=== PATIENT | female | born 1955 | race Caucasian/White ===

== ENCOUNTER → 2016-08-05 | Outpatient (CLI) | payer OTHER ==
--- NOTE | 2016-08-05 13:18 | XR ---
EXAMINATION TYPE: XR lumbosacral spine min 4V DATE OF EXAM: 08/05/2016 1:12 PM CLINICAL HISTORY: Low back pain TECHNIQUE: Frontal, lateral, and oblique images of the lumbar spine are obtained. COMPARISON: MRI lumbar spine December 16, 2012 FINDINGS: There are 5 lumbar type vertebral bodies identified. The lumbar spine shows satisfactory alignment without evidence of acute fracture or dislocation. Vertebral body heights are within normal limits. There is mild to moderate multilevel disc space narrowing most prominent in lower lumbar lev els with vacuum disc phenomenon is present. Mild multilevel anterior spurring is identified. The ob lique images appear within normal limits. Facet arthropathy is noted in lower lumbar levels. Some va scular calyces overlying abdominal aorta is present. IMPRESSION: There are mild to moderate multilevel degenerative changes in the lumbar spine redemonstr ated without significant change from prior MRI noted.
== END | disposition home or self-care (01) ==
LOC: RADXRMAIN 12:48
PROVIDERS: ATTEND Family Medicine
DX: M47.816 Spondylosis without myelopathy or radiculopathy, lumbar region (principal)
CPT/HCPCS: 72110

== ENCOUNTER → 2017-07-08 | Outpatient (CLI) | payer OTHER ==
--- NOTE | 2017-07-09 06:37 | MR ---
EXAMINATION TYPE: MR knee LT wo con DATE OF EXAM: 07/08/2017 COMPARISON: Prior MRI left knee April 24, 2016 HISTORY: Left Knee pain for one year per patient. Medial meniscus: Lateral meniscal tears per order. TECHNIQUE: Multiplanar, multisequence images of the knee is performed without IV contrast. FINDINGS: MEDIAL MENISCUS: Anterior and posterior horns show faint linear signal without intra-articular surfac e extension. No significant change from prior. LATERAL MENISCUS: Posterior horn is intact without tear. There is multidirectional signal anterior ho rn lateral meniscus extends to the superior articular surface sagittal images 7 and 8 redemonstrated felt to reflect full-thickness meniscal tear. CRUCIATE LIGAMENTS: The anterior and posterior cruciate ligaments are intact and unremarkable. COLLATERAL LIGAMENTS: The medial collateral ligament and lateral collateral ligament complex are inta ct and unremarkable. EXTENSOR MECHANISM: Visualized quadriceps and patellar tendons are intact. EFFUSION: There is persistent moderate size suprapatellar joint effusion. POPLITEAL CYST: No popliteal/carlos cyst. TRICOMPARTMENT SPACES: There is mild to moderate tricompartment joint space loss and spurring. CARTILAGE: There is near full-thickness chondromalacia patella involving the inferior lateral aspect of the posterior patellar pole redemonstrated. Articular cartilage medial and lateral tibiofemoral co mpartment is fairly well preserved. BONE MARROW SIGNAL: No focal abnormal marrow signal is appreciated. OTHER: No additional significant abnormality is appreciated. IMPRESSION: 1. Full-thickness tearing anterior horn of lateral meniscus is felt present not significantly changed from prior. 2. No full-thickness tear medial meniscus. Possible intrasubstance tear. No significant change from p rior. 3. Mild to moderate tricompartment degenerative changes with some chondromalacia patella redemonstrat ed. No significant change from prior. 4. Moderate suprapatellar joint effusion stable from prior.
== END | disposition home or self-care (01) ==
LOC: RADMRIMAIN 19:29
PROVIDERS: ATTEND Orthopaedic Surgery
DX: S83.281A Other tear of lateral meniscus, current injury, right knee, initial encounter (principal); M25.461 Effusion, right knee

== ENCOUNTER → 2017-09-10 | Outpatient (CLI) | payer OTHER | LOC: RADMRIMAIN 18:01 | PROVIDERS: ATTEND Family Medicine | DX: Z53.9 Procedure and treatment not carried out, unspecified reason (principal) ==

== ENCOUNTER 2017-12-24 16:30 | Inpatient (IN) | payer MEDICARE, OTHER ==
[2017-12-24] MEDS ORDERED: CLINDAMYCIN 600 MG in DEXTROSE 5% IN WATER 50 ML IVPB STA ×2 (19:04)
[2017-12-24] MEDS ORDERED: LEVOFLOXACIN 750MG-D5W PMX 750 MG in DEXTROSE/WATER 1 150ML.BAG IVPB STA (19:04)
--- NOTE | 2017-12-24 19:14 | ED ---
Animal Bite HPI - General Chief Complaint: Animal Bite Stated Complaint: Cat Bite Time Seen by Provider: 12/24/17 18:34 Source: patient Mode of arrival: ambulatory Limitations: no limitations - History of Present Illness Initial Comments: 62-year-old female patient presents to the emergency department today for evaluation of cat bite to the left arm and hand. Patient states this occurred on Thursday. Did that she's been having swelling and redness to the left arm. States that she did see her primary care physician yesterday and was started on clindamycin added patient went to the office to have it wrapped today and they did note that the redness had increased and spread up her arm so they instructed her to come here for IV antibiotic's. Patient states she has been having chills however denies any known fevers. States she has been taking ibuprofen for pain and discomfort. States that the cat is a stray however she does care for the neighborhood and she has gotten the rabies vaccination for this particular cat. Patient did receive a tetanus vaccine from her primary care physician yesterday. Patient denies any recent rash, shortness breath, chest pain, abdominal pain, nausea, vomiting, diarrhea, constipation, back pain , numbness, tingling, dizziness, weakness, hematuria, dysuria, urinary urgency, urinary frequency, headache, visual changes, or any other complaints. - Related Data Home Medications Medication Instructions Recorded Confirmed Acetaminophen Tab [Tylenol] 1,000 mg PO Q6H PRN 02/10/14 12/24/17 Ibuprofen [Motrin] 800 mg PO TID PRN 02/10/14 12/24/17 Loperamide [Imodium] 4 mg PO DAILY PRN 02/10/14 12/24/17 Omeprazole [PriLOSEC] 20 mg PO AC-BID 02/10/14 12/24/17 Ascorbic Acid [Vitamin C] 1,000 mg PO DAILY 02/20/15 12/24/17 Atorvastatin [Lipitor] 20 mg PO HS 02/20/15 12/24/17 Ergocalciferol [Vitamin D2] 50,000 unit PO FR 02/20/15 12/24/17 LORazepam [Ativan] 1 mg PO QAM 02/20/15 12/24/17 LORazepam [Ativan] 1.5 mg PO HS 02/20/15 12/24/17 Lactase [Lactaid] 9,000 unit PO BID PRN 02/20/15 12/24/17 Magnesium Oxide [Mag-Ox] 250 mg PO DAILY 02/20/15 12/24/17 Simethicone [Gas-X] 250 mg PO DAILY 02/20/15 12/24/17 fluvoxaMINE MALEATE [Luvox] 150 mg PO BID 02/20/15 12/24/17 metFORMIN HCL 1,000 mg PO BID 02/20/15 12/24/17 Aspirin EC [Ecotrin Low Dose] 81 mg PO DAILY 12/24/17 12/24/17 Calcium Polycarbophil [Fibercon] 625 mg PO DAILY 12/24/17 12/24/17 HYDROcodone/APAP 7.5-325MG [[place] 1 tab PO Q6H PRN 12/24/17 12/24/17 7.5-325] buPROPion XL [Wellbutrin Xl] 300 mg PO DAILY 12/24/17 12/24/17 rOPINIRole HCL [Requip] 0.5 mg PO HS 12/24/17 12/24/17 Allergies Allergy/AdvReac Type Severity Reaction Status Date / Time aspirin Allergy Unknown Verified 12/24/17 19:10 cinnamon [Cinnamon] Allergy CHANCRE Verified 12/24/17 19:10 SORES clindamycin HCl Allergy Unknown Verified 12/24/17 19:10 [From Cleocin] clindamycin palmitate HCl Allergy Unknown Verified 12/24/17 19:10 [From Cleocin] clindamycin phosphate Allergy Unknown Verified 12/24/17 19:10 [From Cleocin] codeine Allergy Unknown Verified 12/24/17 19:10 cyclobenzaprine HCl Allergy BALANCE Verified 12/24/17 19:10 [From Flexeril] ISSUES/RELAXTION erythromycin base Allergy Unknown Verified 12/24/17 19:10 [Erythromycin Base] etodolac [From Lodine] Allergy Unknown Verified 12/24/17 19:10 formaldehyde Allergy Rash/Hives Verified 12/24/17 19:10 latex Allergy Rash/Hives Verified 12/24/17 19:10 nickel [Nickel] Allergy Rash/Hives Verified 12/24/17 19:10 Penicillins Allergy Rash/Hives Verified 12/24/17 19:10 Tetracyclines Allergy Rash/Hives Verified 12/24/17 19:10 tramadol HCl [From Ultram] Allergy Unknown Verified 12/24/17 19:10 vancomycin Allergy Rash/Hives Verified 12/24/17 19:10 FRAGANCE Allergy HEADACHE Uncoded 12/24/17 16:54 QUANTERNIUM 15 Allergy Rash/Hives Uncoded 12/24/17 16:54 Review of Systems ROS Statement: Those systems with pertinent positive or pertinent negative responses have been documented in the HPI. ROS Other: All systems not noted in ROS Statement are negative. Past Medical History Past Medical History: Diabetes Mellitus, GERD/Reflux, Hyperlipidemia, Skin Disorder Additional Past Medical History / Comment(s): IBS. LICHENS SCLEROSIS (PERINEAL WOUND) & PITYRIASIS RUBRA PILARIS. mitral valve proplapse when [address] zarate, no longer being treated for that History of Any Multi-Drug Resistant Organisms: None Reported Past Surgical History: Hysterectomy, Tonsillectomy Additional Past Surgical History / Comment(s): RETINAL DETACHMENT. LAPROSCOPY. right cataract, left wrist surgery 02/21/15, adhesions, egd- chocked on food, gets esophagus stretched about 4-5 years ago, 2002 sklarel buckle right eye Past Anesthesia/Blood Transfusion Reactions: Previous Problems w/ Anesthesia Additional Past Anesthesia/Blood Transfusion Reaction / Comment(s): DIFFICULTY WAKING UP Past Psychological History: Anxiety, Depression Smoking Status: Never smoker Past Alcohol Use History: None Reported Past Drug Use History: None Reported - Past Family History Mother Family Medical History: Coronary Artery Disease (CAD), Diabetes Mellitus, Hypertension Father Additional Family Medical History / Comment(s): psychiatric problems General Exam Limitations: no limitations General appearance: alert, in no apparent distress, other (This is a well- developed, well-nourished adult female patient in no acute distress. Vital signs upon presentation are temperature 98.4F, pulse 104, respirations 18, blood pressure 121/67, pulse ox 98% on room air.) Eye exam: Present: normal appearance, PERRL, EOMI. Absent: scleral icterus, conjunctival injection, periorbital swelling ENT exam: Present: normal exam, normal oropharynx, mucous membranes moist Respiratory exam: Present: normal lung sounds bilaterally. Absent: respiratory distress, wheezes, rales, rhonchi, stridor Cardiovascular Exam: Present: regular rate, normal rhythm, normal heart sounds. Absent: systolic murmur, diastolic murmur, rubs, gallop, clicks GI/Abdominal exam: Present: soft, normal bowel sounds. Absent: distended, tenderness, guarding, rebound, rigid Extremities exam: Present: full ROM, tenderness (Over the dorsal left forearm. ) , normal capillary refill, other (Patient has circumferential left forearm erythema. The erythema extends past the elbow up into the medial upper arm. There is erythema over the dorsal surface of the left hand. Mild swelling of the left hand and the left forearm. Patient has multiple abrasions and healing lacerations to the forearm and dorsal hand. Skin is otherwise pink, warm, and dry. Cap refills less than 3 seconds. Radial pulses are 2+ and equal bilaterally.). Absent: normal inspection, pedal edema, joint swelling, calf tenderness Neurological exam: Present: alert, oriented X3, CN II-XII intact Psychiatric exam: Present: normal affect, normal mood Skin exam: Present: warm, dry, intact, normal color. Absent: rash Course Vital Signs 12/24/17 12/24/17 12/24/17 16:52 20:51 22:01 Temperature 98.4 F 98.2 F 98.1 F Pulse Rate 104 H 78 77 Respiratory 18 18 16 Rate Blood Pressure 121/67 120/69 123/75 O2 Sat by Pulse 98 100 99 Oximetry Medical Decision Making - Medical Decision Making 62-year-old female patient presented to the emergency department today for evaluation of cat bites to the left hand and forearm. Physical examination did reveal cellulitis is circumferential to the left forearm, dorsal aspect of the hand, and the medial aspect of the left upper arm. Patient is afebrile. White blood cell count was within normal range. Patient did take 3 doses of oral clindamycin prior to coming in however she did have extension of the cellulitis overnight from the elbow up to the mid upper arm. Patient does have many ALLERGIES to antibiotics we will continue to clindamycin IV and start Levaquin as well. Patient will be admitted for continued intravenous antibiotics. She' ll be admitted to Dr. Sauer. - Lab Data Result diagrams: 12/24/17 19:28 12/24/17 19:28 Lab Results 12/24/17 12/24/17 12/24/17 Range/Units 19:28 19:28 20:08 WBC 7.7 (3.8-10.6) k/uL RBC 3.72 L (3.80-5.40) m/uL Hgb 8.8 L (11.4-16.0) gm/dL Hct 28.3 L (34.0-46.0) % MCV 76.1 L (80.0-100.0) fL MCH 23.7 L (25.0-35.0) pg MCHC 31.1 (31.0-37.0) g/dL RDW 17.5 H (11.5-15.5) % Plt Count 259 (150-450) k/uL Neutrophils % 69 % Lymphocytes % 18 % Monocytes % 8 % Eosinophils % 1 % Basophils % 0 % Neutrophils # 5.4 (1.3-7.7) k/uL Lymphocytes # 1.4 (1.0-4.8) k/uL Monocytes # 0.6 (0-1.0) k/uL Eosinophils # 0.1 (0-0.7) k/uL Basophils # 0.0 (0-0.2) k/uL Hypochromasia Moderate Anisocytosis Slight Microcytosis Slight Sodium 140 (137-145) mmol/L Potassium 4.0 (3.5-5.1) mmol/L Chloride 105 (98-107) mmol/L Carbon Dioxide 24 (22-30) mmol/L Anion Gap 11 mmol/L BUN 14 (7-17) mg/dL Creatinine 0.70 (0.52-1.04) mg/dL Est GFR (CKD-EPI)AfAm >90 (>60 ml/min/1.73 sqM) Est GFR (CKD-EPI)NonAf >90 (>60 ml/min/1.73 sqM) Glucose 81 (74-99) mg/dL Plasma Lactic Acid Iain 1.5 (0.7-2.0) mmol/L Calcium 9.2 (8.4-10.2) mg/dL Total Bilirubin 0.2 (0.2-1.3) mg/dL AST 19 (14-36) U/L ALT 25 (9-52) U/L Alkaline Phosphatase 64 (38-126) U/L Total Protein 5.9 L (6.3-8.2) g/dL Albumin 3.8 (3.5-5.0) g/dL - Radiology Data Radiology results: report reviewed, image reviewed 3 views of the left hand were obtained, no fracture or dislocations were noted. Joint spaces are normal. There is deformity of the distal radius related to old trauma. There is narrowing of the radiocarpal joint space. Impression by Dr. Randolph shows old wrist fracture. No acute abnormality of the left hand. X-ray of the left forearm was obtained. This no fracture nor dislocation. There is deformity of the distal radius and ulna related to old healed fractures. Elbow joint appears intact. There is some soft tissue swelling over the mid radius. Impression by Dr. Randolph shows soft tissue swelling. No acute bony abnormality. Disposition Clinical Impression: Cat bite involving extremity, Cellulitis Disposition: ADMITTED IP TO THIS [facility] Condition: Serious Decision to Admit Reason: Admit from EC Decision Date: 12/24/17 Decision Time: 21:35
[2017-12-24 19:48] LABS: Anisocytosis Slight; Basophils % (A) 0 %; Eosinophils # (A) 0.1 k/uL (0-0.7); Eosinophils % (A) 1 %; HCT 28.3 % (34.0-46.0); HGB 8.8 gm/dL (11.4-16.0); Hypochromasia Moderate; Lymphocytes # (A) 1.4 k/uL (1.0-4.8); Lymphocytes % (A) 18 %; MCH 23.7 pg (25.0-35.0); MCHC 31.1 g/dL (31.0-37.0); MCV 76.1 fL (80.0-100.0); Mean Platelet Volume 7.5; Microcytosis Slight; Monocytes # (A) 0.6 k/uL (0-1.0); Monocytes % (A) 8 %; Neutrophils # (A) 5.4 k/uL (1.3-7.7); Neutrophils % (A) 69 %; Platelet Count 259 k/uL (150-450); RBC 3.72 m/uL (3.80-5.40); RDW 17.5 % (11.5-15.5); WBC 7.7 k/uL (3.8-10.6)
[2017-12-24 20:02] LABS: ALT 25 U/L (9-52); AST 19 U/L (14-36); Albumin 3.8 g/dL (3.5-5.0); Alkaline Phosphatase 64 U/L (38-126); Anion Gap 11 mmol/L; Blood Urea Nitrogen 14 mg/dL (7-17); Calcium 9.2 mg/dL (8.4-10.2); Carbon Dioxide 24 mmol/L (22-30); Chloride 105 mmol/L (98-107); Glucose 81 mg/dL (74-99); Sodium 140 mmol/L (137-145); Total Bilirubin 0.2 mg/dL (0.2-1.3); Total Protein 5.9 g/dL (6.3-8.2)
[2017-12-24] MEDS ORDERED: IBUPROFEN 400 MG TAB PO PRN (21:31)
[2017-12-24] MEDS ORDERED: NALOXONE 0.4 MG/ML 1 ML VIAL IV PRN (21:31)
--- NOTE | 2017-12-24 21:44 | XR ---
EXAMINATION TYPE: XR hand complete LT DATE OF EXAM: 12/24/2017 COMPARISON: NONE HISTORY: Multiple cat bites TECHNIQUE: 3 views FINDINGS: I see no fracture nor dislocation. Joint spaces are normal. There is deformity of the dista l radius related to old trauma. There is narrowing of radiocarpal joint space. IMPRESSION: Old wrist fracture. No acute abnormality of the left hand.
[2017-12-24] MEDS ORDERED: SODIUM CHLORIDE 0.9% 1,000 ML IV SCH (21:45)
--- NOTE | 2017-12-24 21:45 | XR ---
EXAMINATION TYPE: XR forearm LT DATE OF EXAM: 12/24/2017 COMPARISON: NONE HISTORY: Cat bite TECHNIQUE: 2 views FINDINGS: I see no fracture nor dislocation. There is deformity of the distal radius and ulna related to old healed fractures. Elbow joint appears intact. There is some soft tissue swelling over the mid radius. IMPRESSION: Soft tissue swelling. No acute bony abnormality.
[2017-12-24] MEDS ORDERED: LACTASE 9000 UNIT PO PRN (22:09)
[2017-12-24] MEDS ORDERED: LOPERAMIDE 2 MG CAP PO PRN (22:09)
[2017-12-24 23:02] VITALS: BMI 29.0
[2017-12-24] MEDS ORDERED: LORazepam 1 MG TAB PO SCH (23:30)
[2017-12-24] MEDS: HYDROcodone/APAP 7.5-325MG 1 EACH TAB PO PRN (23:45)
[2017-12-24] MEDS: ACETAMINOPHEN TAB 325 MG TAB PO PRN (23:46)
[2017-12-25] MEDS: CLINDAMYCIN 600 MG in DEXTROSE 5% IN WATER 50 ML IVPB SCH ×6 (03:30→18:10)
[2017-12-25] MEDS: metFORMIN 500 MG TAB PO SCH ×2 (06:56→18:10)
[2017-12-25] MEDS: HYDROcodone/APAP 7.5-325MG 1 EACH TAB PO PRN ×2 (06:57→12:38)
[2017-12-25 07:08] LABS: Anisocytosis Slight; Basophils % (A) 1 %; Eosinophils # (A) 0.1 k/uL (0-0.7); Eosinophils % (A) 2 %; HCT 26.4 % (34.0-46.0); Hypochromasia Marked; Lymphocytes % (A) 21 %; MCH 23.4 pg (25.0-35.0); MCHC 30.1 g/dL (31.0-37.0); MCV 77.6 fL (80.0-100.0); Mean Platelet Volume 6.9; Microcytosis Slight; Monocytes # (A) 0.4 k/uL (0-1.0); Monocytes % (A) 9 %; Neutrophils % (A) 64 %; Platelet Count 253 k/uL (150-450); RBC 3.41 m/uL (3.80-5.40); RDW 17.3 % (11.5-15.5); WBC 4.8 k/uL (3.8-10.6)
[2017-12-25 07:20] LABS: Anion Gap 9 mmol/L; Blood Urea Nitrogen 11 mg/dL (7-17); Calcium 8.7 mg/dL (8.4-10.2); Carbon Dioxide 25 mmol/L (22-30); Chloride 106 mmol/L (98-107); Glucose 91 mg/dL (74-99); Sodium 140 mmol/L (137-145)
[2017-12-25] MEDS ORDERED: PANTOPRAZOLE 40 MG TABLET PO SCH (07:30)
--- NOTE | 2017-12-25 08:40 | P.HPIM ---
History of Present Illness H&P Date: 12/25/17 Chief Complaint: Left arm Bite. This is a 62-year-old white female essentially admitted for cellulitis related to animal bite from a cat. The patient states low-grade fever but now after being given Levaquin and clindamycin, she is doing quite well. No significant fever or chills since admission. Her left arm is decreased on swelling but there is still significant cellulitis from the multiple bites. Review of Systems Constitutional: Reports fever, Denies chills Eyes: denies blurred vision, denies pain Ears, nose, mouth and throat: Denies headache, Denies sore throat Cardiovascular: Denies chest pain, Denies shortness of breath Gastrointestinal: Denies abdominal pain, Denies diarrhea, Denies nausea, Denies vomiting Genitourinary: Denies dysuria, Denies hematuria Integumentary: Reports rash, Denies pruritus Past Medical History Past Medical History: Diabetes Mellitus, GERD/Reflux, Hyperlipidemia, Skin Disorder Additional Past Medical History / Comment(s): IBS. LICHENS SCLEROSIS (PERINEAL WOUND) & PITYRIASIS RUBRA PILARIS. mitral valve proplapse when [address] zarate, no longer being treated for that History of Any Multi-Drug Resistant Organisms: None Reported Past Surgical History: Hysterectomy, Tonsillectomy Additional Past Surgical History / Comment(s): RETINAL DETACHMENT. LAPROSCOPY. right cataract, left wrist surgery 02/21/15, adhesions, egd- chocked on food, gets esophagus stretched about 4-5 years ago, 2002 sclarel buckle right eye Past Anesthesia/Blood Transfusion Reactions: Previous Problems w/ Anesthesia Additional Past Anesthesia/Blood Transfusion Reaction / Comment(s): DIFFICULTY WAKING UP Past Psychological History: Anxiety, Depression Smoking Status: Never smoker Past Alcohol Use History: None Reported Past Drug Use History: None Reported - Past Family History Mother Family Medical History: Coronary Artery Disease (CAD), Diabetes Mellitus, Hypertension Father Additional Family Medical History / Comment(s): psychiatric problems Medications and Allergies Home Medications Medication Instructions Recorded Confirmed Type Acetaminophen Tab [Tylenol] 1,000 mg PO Q6H PRN 02/10/14 12/24/17 History Ibuprofen [Motrin] 800 mg PO TID PRN 02/10/14 12/24/17 History Loperamide [Imodium] 4 mg PO DAILY PRN 02/10/14 12/24/17 History Omeprazole [PriLOSEC] 20 mg PO AC-BID 02/10/14 12/24/17 History Ascorbic Acid [Vitamin C] 1,000 mg PO DAILY 02/20/15 12/24/17 History Atorvastatin [Lipitor] 20 mg PO HS 02/20/15 12/24/17 History Ergocalciferol [Vitamin D2] 50,000 unit PO FR 02/20/15 12/24/17 History LORazepam [Ativan] 1 mg PO QAM 02/20/15 12/24/17 History LORazepam [Ativan] 1.5 mg PO HS 02/20/15 12/24/17 History Lactase [Lactaid] 9,000 unit PO BID PRN 02/20/15 12/24/17 History Magnesium Oxide [Mag-Ox] 250 mg PO DAILY 02/20/15 12/24/17 History Simethicone [Gas-X] 250 mg PO DAILY 02/20/15 12/24/17 History fluvoxaMINE MALEATE [Luvox] 150 mg PO BID 02/20/15 12/24/17 History metFORMIN HCL 1,000 mg PO BID 02/20/15 12/24/17 History Aspirin EC [Ecotrin Low Dose] 81 mg PO DAILY 12/24/17 12/24/17 History Calcium Polycarbophil [Fibercon] 625 mg PO DAILY 12/24/17 12/24/17 History HYDROcodone/APAP 7.5-325MG [[place] 1 tab PO Q6H PRN 12/24/17 12/24/17 History 7.5-325] buPROPion XL [Wellbutrin Xl] 300 mg PO DAILY 12/24/17 12/24/17 History rOPINIRole HCL [Requip] 0.5 mg PO HS 12/24/17 12/24/17 History Allergies Allergy/AdvReac Type Severity Reaction Status Date / Time aspirin Allergy Unknown Verified 12/24/17 23:05 cinnamon [Cinnamon] Allergy CHANCRE Verified 12/24/17 23:05 SORES codeine Allergy Unknown Verified 12/24/17 23:05 cyclobenzaprine HCl Allergy BALANCE Verified 12/24/17 23:05 [From Flexeril] ISSUES/RELAXTION erythromycin base Allergy Unknown Verified 12/24/17 23:05 [Erythromycin Base] etodolac [From Lodine] Allergy Unknown Verified 12/24/17 23:05 formaldehyde Allergy Rash/Hives Verified 12/24/17 23:05 latex Allergy Rash/Hives Verified 12/24/17 23:05 nickel [Nickel] Allergy Rash/Hives Verified 12/24/17 23:05 Penicillins Allergy Rash/Hives Verified 12/24/17 23:05 Tetracyclines Allergy Rash/Hives Verified 12/24/17 23:05 tramadol HCl [From Ultram] Allergy Unknown Verified 12/24/17 23:05 vancomycin Allergy Rash/Hives Verified 12/24/17 23:05 FRAGANCE Allergy HEADACHE Uncoded 12/24/17 23:05 QUANTERNIUM 15 Allergy Rash/Hives Uncoded 12/24/17 23:05 Physical Exam Vitals: Vital Signs Temp Pulse Pulse Resp BP BP Pulse Ox 12/24/17 22:32 97.2 F L 74 20 147/79 96 12/24/17 22:01 98.1 F 77 16 123/75 99 12/24/17 20:51 98.2 F 78 18 120/69 100 12/24/17 16:52 98.4 F 104 H 18 121/67 98 Intake and Output 12/24/17 12/25/17 12/25/17 22:59 06:59 14:59 Other: # Voids 1 Weight 86.5 kg - Constitutional General appearance: no acute distress - EENT Eyes: EOMI - Neck Neck: lymphadenopathy - Gastrointestinal General gastrointestinal: no organomegaly, soft, no tenderness - Integumentary Multiple puncture wounds secondary to cat bite on the left forearm. Integumentary: cellulitis - Neurologic Neurologic: CNII-XII intact Results CBC & Chem 7: 12/25/17 06:54 12/25/17 06:54 Labs: Abnormal Lab Results - Last 24 Hours (Table) 12/24/17 12/24/17 12/25/17 Range/Units 19:28 19:28 06:54 RBC 3.72 L 3.41 L (3.80-5.40) m/uL Hgb 8.8 L 8.0 L (11.4-16.0) gm/dL Hct 28.3 L 26.4 L (34.0-46.0) % MCV 76.1 L 77.6 L (80.0-100.0) fL MCH 23.7 L 23.4 L (25.0-35.0) pg MCHC 30.1 L (31.0-37.0) g/dL RDW 17.5 H 17.3 H (11.5-15.5) % Total Protein 5.9 L (6.3-8.2) g/dL Thrombosis Risk Factor Assmnt - Choose All That Apply Each Factor Represents 1 point: Age 41-60 years, Obesity (BMI >25) Thrombosis Risk Factor Assessment Total Risk Factor Score: 2 Thrombosis Risk Factor Assessment Level: Low Risk Assessment and Plan (1) Cat bite involving extremity Current Visit: Yes Status: Acute Code(s): [id number] - SNOMED Code(s): 358297957 (2) Cellulitis Current Visit: Yes Status: Acute Code(s): L03.90 - CELLULITIS, UNSPECIFIED SNOMED Code(s): 270038996 (3) DM w/o complication type II Current Visit: No Status: Acute Code(s): E11.9 - TYPE 2 DIABETES MELLITUS WITHOUT COMPLICATIONS SNOMED Code(s): 723297804 Plan: We will go ahead and continue antibiotic treatment. Anticipate discharge later today after having several more doses of clindamycin and Levaquin. She will follow-up with me in about 3 days. Time with Patient: Less than 30
--- NOTE | 2017-12-25 08:43 | P.DS ---
Providers Date of admission: 12/24/17 21:31 Attending physician: Michael Sauer Primary care physician: Michael Sauer - Discharge Diagnosis(es) (1) Cat bite involving extremity Current Visit: Yes Status: Acute (2) Cellulitis Current Visit: Yes Status: Acute (3) DM w/o complication type II Current Visit: No Status: Acute Hospital Course: This is a discharge summary 62-year-old white female essentially admitted for animal bite. The patient was placed on appropriate antibiotic treatment and did quite well. After being given several doses of Levaquin and clindamycin, she will discharged on oral medication to follow-up with me in about 3-5 days. Patient Condition at Discharge: Stable Plan - Discharge Summary New Discharge Prescriptions: New Clindamycin HCl 300 mg PO Q8HR 7 Days #21 cap Levofloxacin [Levaquin] 500 mg PO DAILY #7 tab Continue Omeprazole [PriLOSEC] 20 mg PO AC-BID Ibuprofen [Motrin] 800 mg PO TID PRN PRN Reason: Pain Acetaminophen Tab [Tylenol] 1,000 mg PO Q6H PRN PRN Reason: Pain Loperamide [Imodium] 4 mg PO DAILY PRN PRN Reason: Diarrhea Simethicone [Gas-X] 250 mg PO DAILY Magnesium Oxide [Mag-Ox] 250 mg PO DAILY Ergocalciferol [Vitamin D2 (DRISDOL)] 50,000 unit PO FR Atorvastatin [Lipitor] 20 mg PO HS Ascorbic Acid [Vitamin C] 1,000 mg PO DAILY LORazepam [Ativan] 1 mg PO QAM LORazepam [Ativan] 1.5 mg PO HS fluvoxaMINE MALEATE [Luvox] 150 mg PO BID metFORMIN HCL 1,000 mg PO BID Lactase [Lactaid] 9,000 unit PO BID PRN PRN Reason: Allergy. Aspirin EC [Ecotrin Low Dose] 81 mg PO DAILY buPROPion XL [Wellbutrin XL] 300 mg PO DAILY Calcium Polycarbophil [Fibercon] 625 mg PO DAILY HYDROcodone/APAP 7.5-325MG [[place] 7.5-325] 1 tab PO Q6H PRN PRN Reason: Pain rOPINIRole HCL [Requip] 0.5 mg PO HS Discharge Medication List Acetaminophen Tab [Tylenol] 1,000 mg PO Q6H PRN 02/10/14 [History] Ibuprofen [Motrin] 800 mg PO TID PRN 08/15/14 [History] Loperamide [Imodium] 4 mg PO DAILY PRN 02/10/14 [History] Omeprazole [PriLOSEC] 20 mg PO AC-BID 02/10/14 [History] Ascorbic Acid [Vitamin C] 1,000 mg PO DAILY 02/20/15 [History] Atorvastatin [Lipitor] 20 mg PO HS 02/20/15 [History] Ergocalciferol [Vitamin D2 (DRISDOL)] 50,000 unit PO FR 02/20/15 [History] LORazepam [Ativan] 1 mg PO QAM 02/20/15 [History] LORazepam [Ativan] 1.5 mg PO HS 02/20/15 [History] Lactase [Lactaid] 9,000 unit PO BID PRN 02/20/15 [History] Magnesium Oxide [Mag-Ox] 250 mg PO DAILY 02/20/15 [History] Simethicone [Gas-X] 250 mg PO DAILY 02/20/15 [History] fluvoxaMINE MALEATE [Luvox] 150 mg PO BID 02/20/15 [History] metFORMIN HCL 1,000 mg PO BID 02/20/15 [History] Aspirin EC [Ecotrin Low Dose] 81 mg PO DAILY 12/24/17 [History] Calcium Polycarbophil [Fibercon] 625 mg PO DAILY 12/24/17 [History] HYDROcodone/APAP 7.5-325MG [[place] 7.5-325] 1 tab PO Q6H PRN 12/24/17 [History] buPROPion XL [Wellbutrin XL] 300 mg PO DAILY 12/24/17 [History] rOPINIRole HCL [Requip] 0.5 mg PO HS 12/24/17 [History] Clindamycin HCl 300 mg PO Q8HR 7 Days #21 cap 12/25/17 [Rx] Levofloxacin [Levaquin] 500 mg PO DAILY #7 tab 12/25/17 [Rx] Follow up Appointment(s)/Referral(s): Michael Sauer MD [Primary Care Provider] - 1-2 days Patient Instructions/Handouts: Animal Bite (ED)
[2017-12-25] MEDS ORDERED: CALCIUM POLYCARBOPHIL 625 MG TAB PO SCH (09:00)
[2017-12-25] MEDS ORDERED: LORazepam 1 MG TAB PO SCH ×2 (09:00→21:00)
[2017-12-25] MEDS ORDERED: ASPIRIN 81 MG PO SCH (09:00)
[2017-12-25] MEDS ORDERED: MAGNESIUM OXIDE 400 MG TAB PO SCH (09:00)
[2017-12-25] MEDS ORDERED: buPROPion XL 300 MG TAB.ER.24H PO SCH (09:00)
[2017-12-25] MEDS ORDERED: SIMETHICONE 80 MG CHEWABLE PO SCH (09:00)
[2017-12-25] MEDS ORDERED: ASCORBIC ACID 500 MG TAB PO SCH (09:00)
[2017-12-25] MEDS ORDERED: ERGOCALCIFEROL 50,000 UNIT CAP PO SCH (09:00)
[2017-12-25] MEDS: ACETAMINOPHEN TAB 325 MG TAB PO PRN (11:08)
[2017-12-25 13:29] VITALS: RESP 20
[2017-12-25 17:25] VITALS: BP 117/76; PULSE 69; TEMP 97.4
[2017-12-25] MEDS ORDERED: LEVOFLOXACIN 500 MG TAB PO SCH (21:00)
[2017-12-25] MEDS ORDERED: LEVOFLOXACIN 500MG-D5W PMX 500 MG in DEXTROSE/WATER 1 100ML.BAG IVPB SCH (21:00)
[2017-12-25] MEDS ORDERED: ATORVASTATIN 20 MG TAB PO SCH (21:00)
== END 2017-12-25 19:11 | disposition home or self-care (01) | DRG 603 ==
LOC: EC 16:30 → 6PED 21:31
PROVIDERS: ADMIT Family Medicine; ATTEND Family Medicine
DX: L03.114 Cellulitis of left upper limb (principal); S51.852A Open bite of left forearm, initial encounter; W55.01XA Bitten by cat, initial encounter; E11.9 Type 2 diabetes mellitus without complications; E78.5 Hyperlipidemia, unspecified; F32.9 Major depressive disorder, single episode, unspecified; F41.9 Anxiety disorder, unspecified; K21.9 Gastro-esophageal reflux disease without esophagitis; K58.9 Irritable bowel syndrome, unspecified; Z82.49 Family history of ischemic heart disease and other diseases of the circulatory system; Z83.3 Family history of diabetes mellitus; Z88.1 Allergy status to other antibiotic agents; Z90.710 Acquired absence of both cervix and uterus; Z98.41 Cataract extraction status, right eye; Z79.899 Other long term (current) drug therapy; Z79.84 Long term (current) use of oral hypoglycemic drugs; Z79.82 Long term (current) use of aspirin; Z79.891 Long term (current) use of opiate analgesic; Z88.6 Allergy status to analgesic agent; Z91.040 Latex allergy status; Z88.5 Allergy status to narcotic agent; Z88.0 Allergy status to penicillin; Z91.048 Other nonmedicinal substance allergy status
CPT/HCPCS: 36415; 80048; 80053; 83605; 85025; 87040; 96365; 96367; 99284

== ENCOUNTER 2018-01-02 17:55 | Emergency (ER) | payer MEDICARE, OTHER ==
[2018-01-02 18:19] VITALS: BP 105/69; PULSE 89; RESP 16; TEMP 97.5
--- NOTE | 2018-01-02 18:47 | XR ---
EXAMINATION TYPE: XR hand complete RT DATE OF EXAM: 01/02/2018 CLINICAL HISTORY: Right hand laceration, redness, and swelling after cat bite TECHNIQUE: Frontal, lateral and oblique images of the right hand are obtained. COMPARISON: None. FINDINGS: There is no acute fracture/dislocation evident in the right hand. The joint spaces in the right hand appear within normal limits. Subcutaneous emphysema is seen between the fourth and fifth m etatarsals with dorsal soft tissue swelling. No cortical erosion. No periosteal reaction. No radiopaq ue foreign body. IMPRESSION: There is no acute fracture or dislocation in the right hand. Subcutaneous emphysema betw een the fourth and fifth metatarsals with associated soft tissue swelling likely in the region of the known penetrating trauma. No periosteal reaction or cortical erosion.
[2018-01-02] MEDS ORDERED: LEVOFLOXACIN 500 MG TAB PO STA (19:01)
--- NOTE | 2018-01-02 19:02 | ED ---
Animal Bite HPI - General Chief Complaint: Animal Bite Stated Complaint: CAT BITE RT ARM Time Seen by Provider: 01/02/18 18:21 Source: patient, RN notes reviewed Mode of arrival: ambulatory Limitations: no limitations - History of Present Illness Initial Comments: This is a 8-year-old female presents to the emergency department with chief complaint of Eye. Patient states that she cares for stray cats her neighborhood. She states that last evening the cat's that her in the right hand. Patient states that she washed the area with hydrogen peroxide and put Silvadene cream on it over the night. Patient states that she was discharged one week ago from the hospital from a cat bite to her left forearm and hand. She states that she was admitted for IV Levaquin and clindamycin. She states that she finished her oral dose of Levaquin yesterday and is still taking clindamycin currently. She denies any fevers or chills. She states that she is up-to-date with her tetanus vaccination. States that she does believe this particular stray cat is up-to-date with vaccinations and states that she has received the rabies vaccine. Patient denies any other injuries or trauma. - Related Data Home Medications Medication Instructions Recorded Confirmed Acetaminophen Tab [Tylenol] 1,000 mg PO Q6H PRN 02/10/14 12/24/17 Ibuprofen [Motrin] 800 mg PO TID PRN 02/10/14 12/24/17 Loperamide [Imodium] 4 mg PO DAILY PRN 02/10/14 12/24/17 Omeprazole [PriLOSEC] 20 mg PO AC-BID 02/10/14 12/24/17 Ascorbic Acid [Vitamin C] 1,000 mg PO DAILY 02/20/15 12/24/17 Atorvastatin [Lipitor] 20 mg PO HS 02/20/15 12/24/17 Ergocalciferol [Vitamin D2 50,000 unit PO FR 02/20/15 12/24/17 (DRISDOL)] LORazepam [Ativan] 1 mg PO QAM 02/20/15 12/24/17 LORazepam [Ativan] 1.5 mg PO HS 02/20/15 12/24/17 Lactase [Lactaid] 9,000 unit PO BID PRN 02/20/15 12/24/17 Magnesium Oxide [Mag-Ox] 250 mg PO DAILY 02/20/15 12/24/17 Simethicone [Gas-X] 250 mg PO DAILY 02/20/15 12/24/17 fluvoxaMINE MALEATE [Luvox] 150 mg PO BID 02/20/15 12/24/17 metFORMIN HCL 1,000 mg PO BID 02/20/15 12/24/17 Aspirin EC [Ecotrin Low Dose] 81 mg PO DAILY 12/24/17 12/24/17 Calcium Polycarbophil [Fibercon] 625 mg PO DAILY 12/24/17 12/24/17 HYDROcodone/APAP 7.5-325MG [Golden 1 tab PO Q6H PRN 12/24/17 12/24/17 7.5-325] buPROPion XL [Wellbutrin XL] 300 mg PO DAILY 12/24/17 12/24/17 rOPINIRole HCL [Requip] 0.5 mg PO HS 12/24/17 12/24/17 Previous Rx's Medication Instructions Recorded Clindamycin HCl 300 mg PO Q8HR 7 Days #21 cap 12/25/17 Levofloxacin [Levaquin] 500 mg PO DAILY #7 tab 12/25/17 Levofloxacin [Levaquin] 500 mg PO BID #14 tab 01/02/18 Allergies Allergy/AdvReac Type Severity Reaction Status Date / Time aspirin Allergy Unknown Verified 01/02/18 18:19 cinnamon [Cinnamon] Allergy CHANCRE Verified 01/02/18 18:19 SORES codeine Allergy Unknown Verified 01/02/18 18:19 cyclobenzaprine HCl Allergy BALANCE Verified 01/02/18 18:19 [From Flexeril] ISSUES/RELAXTION erythromycin base Allergy Unknown Verified 01/02/18 18:19 [Erythromycin Base] etodolac [From Lodine] Allergy Unknown Verified 01/02/18 18:19 formaldehyde Allergy Rash/Hives Verified 01/02/18 18:19 latex Allergy Rash/Hives Verified 01/02/18 18:19 nickel [Nickel] Allergy Rash/Hives Verified 01/02/18 18:19 Penicillins Allergy Rash/Hives Verified 01/02/18 18:19 Tetracyclines Allergy Rash/Hives Verified 01/02/18 18:19 tramadol HCl [From Ultram] Allergy Unknown Verified 01/02/18 18:19 vancomycin Allergy Rash/Hives Verified 01/02/18 18:19 FRAGANCE Allergy HEADACHE Uncoded 01/02/18 18:19 QUANTERNIUM 15 Allergy Rash/Hives Uncoded 01/02/18 18:19 Review of Systems ROS Statement: Those systems with pertinent positive or pertinent negative responses have been documented in the HPI. ROS Other: All systems not noted in ROS Statement are negative. Past Medical History Past Medical History: Diabetes Mellitus, GERD/Reflux, Hyperlipidemia, Skin Disorder Additional Past Medical History / Comment(s): IBS. LICHENS SCLEROSIS (PERINEAL WOUND) & PITYRIASIS RUBRA PILARIS. mitral valve proplapse when [address] zarate, no longer being treated for that History of Any Multi-Drug Resistant Organisms: None Reported Past Surgical History: Hysterectomy, Tonsillectomy Additional Past Surgical History / Comment(s): RETINAL DETACHMENT. LAPROSCOPY. right cataract, left wrist surgery 02/21/15, adhesions, egd- chocked on food, gets esophagus stretched about 4-5 years ago, 2002 sclarel buckle right eye Past Anesthesia/Blood Transfusion Reactions: Previous Problems w/ Anesthesia Additional Past Anesthesia/Blood Transfusion Reaction / Comment(s): DIFFICULTY WAKING UP Past Psychological History: Anxiety, Depression Smoking Status: Never smoker Past Alcohol Use History: None Reported Past Drug Use History: None Reported - Past Family History Mother Family Medical History: Coronary Artery Disease (CAD), Diabetes Mellitus, Hypertension Father Additional Family Medical History / Comment(s): psychiatric problems General Exam - General Exam Comments Initial Comments: General: Awake and alert, well-developed; in no apparent distress. HEENT: Head atraumatic, normocephalic. Pupils are equal, round and reactive to light. Extraocular movements intact. Oropharynx moist without erythema or exudate. Neck: Supple. Normal ROM. Cardiovascular: Regular rate and rhythm. No murmurs, rubs or gallops. Chest symmetrical. Respiratory: Lungs clear to auscultation bilaterally. No wheezes, rales or rhonchi. Normal respiratory effort with no use of accessory muscles. Musculoskeletal: Normal to motion of the right hand. Sensation is intact. Radial pulses are 2+ equal and palpable bilaterally. Skin: There is a generalized swelling and erythema to the dorsal aspect of the right hand. There are approximately 6 puncture wounds noted to the dorsal aspect. Superficial scratch abrasions to the dorsal right wrist. All other skin is pink, warm and dry. Neurological: Alert and oriented x3. CN II-XII grossly intact. Speech is fluent and answers are appropriate. No focal neuro deficits. Psychiatric: Normal mood and affect. No overt signs of depression or anxiety noted. Limitations: no limitations Course Vital Signs 01/02/18 18:17 Temperature 97.5 F L Pulse Rate 89 Respiratory 16 Rate Blood Pressure 105/69 O2 Sat by Pulse 96 Oximetry Medical Decision Making - Medical Decision Making This is a 62-year-old female who presents to the emergency department with chief complaint of cat bite. Patient was bit by a stray cat last evening. She is up-to-date with tetanus vaccination. She was recently discharged from the hospital from another cat bite. She is taking clindamycin and states that she has another prescription for the next 21 days. Right hand has multiple puncture wounds with surrounding erythema, swelling and tenderness. Patient does have normal range of motion of the right hand and is neurovascularly intact. This case was discussed with attending physician, Dr. Engel also evaluated the patient. Recommended adding oral Levaquin. Recommended return to the emergency department if any worsening. Vital signs are stable and patient is in acute distress. She will be discharged home at this time. Given first dose of Levaquin while in the emergency department. - Radiology Data Radiology results: report reviewed X-ray right hand impression: There is no acute fracture dislocation the right hand. Subcutaneous emphysema. The fourth and fifth metatarsals with associated soft tissue swelling likely in the region of the known penetrating trauma. No periosteal reaction or cortical erosion. No radiopaque foreign body. Disposition Clinical Impression: Cat bite Disposition: HOME SELF-CARE Condition: Good Instructions: Animal Bite (ED) Additional Instructions: Please take medications as prescribed. Please follow up with primary care provider within 1-2 days. Please return to emergency department if any fevers, worsening in redness, tenderness or swelling. Return to emergency department if symptoms should worsen or any concerns arise. Prescriptions: Levofloxacin [Levaquin] 500 mg PO BID #14 tab Is patient prescribed a controlled substance at d/c from ED?: No Referrals: Michael Sauer MD [Primary Care Provider] - 1-2 days Time of Disposition: 19:07
== END 2018-01-02 19:21 | disposition home or self-care (01) ==
LOC: EC 17:55
DX: S60.811A Abrasion of right wrist, initial encounter (principal); E11.9 Type 2 diabetes mellitus without complications; K21.9 Gastro-esophageal reflux disease without esophagitis; E78.5 Hyperlipidemia, unspecified; F32.9 Major depressive disorder, single episode, unspecified; F41.9 Anxiety disorder, unspecified; Z79.82 Long term (current) use of aspirin; Z79.84 Long term (current) use of oral hypoglycemic drugs; Z79.899 Other long term (current) drug therapy; Z88.6 Allergy status to analgesic agent; Z88.5 Allergy status to narcotic agent; Z88.1 Allergy status to other antibiotic agents; Z91.040 Latex allergy status; Z88.8 Allergy status to other drugs, medicaments and biological substances; Z91.09 Other allergy status, other than to drugs and biological substances; W55.03XA Scratched by cat, initial encounter
CPT/HCPCS: 99283

== ENCOUNTER 2019-02-12 21:04 | Emergency (ER) | payer MEDICARE, OTHER ==
[2019-02-12 21:13] VITALS: TEMP 98.9
[2019-02-12 21:52] LABS: Basophils # (A) 0.1 k/uL (0-0.2); Basophils % (A) 1 %; Eosinophils # (A) 0.6 k/uL (0-0.7); Eosinophils % (A) 8 %; HCT 36.4 % (34.0-46.0); Lymphocytes # (A) 2.5 k/uL (1.0-4.8); Lymphocytes % (A) 37 %; MCH 30.8 pg (25.0-35.0); MCHC 32.9 g/dL (31.0-37.0); MCV 93.5 fL (80.0-100.0); Mean Platelet Volume 7.8; Monocytes # (A) 0.4 k/uL (0-1.0); Monocytes % (A) 7 %; Neutrophils % (A) 44 %; Platelet Count 228 k/uL (150-450); RBC 3.89 m/uL (3.80-5.40); RDW 14.8 % (11.5-15.5); WBC 6.7 k/uL (3.8-10.6)
[2019-02-12 22:02] LABS: Albumin 3.7 g/dL (3.5-5.0); Calcium 9.3 mg/dL (8.4-10.2); Magnesium 1.7 mg/dL (1.6-2.3); Potassium 4.1 mmol/L (3.5-5.1); Total Bilirubin 0.3 mg/dL (0.2-1.3)
--- NOTE | 2019-02-12 22:11 | ED ---
SOB HPI - General Chief Complaint: Shortness of Breath Stated Complaint: SOB Time Seen by Provider: 02/12/19 21:19 Source: patient Mode of arrival: ambulatory Limitations: no limitations - History of Present Illness Initial Comments: 63 yo female with history of HLD presenting today for cc of shortness of breath, leg swelling. Patient states the past week she has had shortness of breath she has noticed leg swelling for a month. She states right greater than left. Patient states she did twist her right ankle about a month ago. Patient was asked in triage she had any other pain. Patient states that she has right shoulder pain she states this is chronic and was scheduled on February 15 for a total shoulder however she had a rescheduled appointment due to family matters. Patient states the pain she is experiencing the right shoulder is the same as been persistent for the past year. No changes in characteristics and the pain increases with ROM. Patient denies any chest pain. She denies hemoptysis she denies history of heart failure. Patient denies any recent chest pain patient denies coronary artery disease she denies diabetes. Patient denies abdominal pain arm pain patient denies any increasing shortness of breath with inhalation she states it occurs randomly. Patient denies history of DVT or point embolus and. Denies recent surgeries or immobilization. Patient denies history of cancer. Patient shira fever, URI symptoms. Remaining ROS (-). Upon arrival patient appears well no signs of acute distress. 114HR. No overt signs of SOB. - Related Data Home Medications Medication Instructions Recorded Confirmed Acetaminophen Tab [Tylenol] 1,000 mg PO Q6H PRN 02/10/14 12/24/17 Ibuprofen [Motrin] 800 mg PO TID PRN 02/10/14 12/24/17 Loperamide [Imodium] 4 mg PO DAILY PRN 02/10/14 12/24/17 Omeprazole [PriLOSEC] 20 mg PO AC-BID 02/10/14 12/24/17 Ascorbic Acid [Vitamin C] 1,000 mg PO DAILY 02/20/15 12/24/17 Atorvastatin [Lipitor] 20 mg PO HS 02/20/15 12/24/17 Ergocalciferol [Vitamin D2 50,000 unit PO FR 02/20/15 12/24/17 (DRISDOL)] LORazepam [Ativan] 1 mg PO QAM 02/20/15 12/24/17 LORazepam [Ativan] 1.5 mg PO HS 02/20/15 12/24/17 Lactase [Lactaid] 9,000 unit PO BID PRN 02/20/15 12/24/17 Magnesium Oxide [Mag-Ox] 250 mg PO DAILY 02/20/15 12/24/17 Simethicone [Gas-X] 250 mg PO DAILY 02/20/15 12/24/17 fluvoxaMINE MALEATE [Luvox] 150 mg PO BID 02/20/15 12/24/17 metFORMIN HCL 1,000 mg PO BID 02/20/15 12/24/17 Aspirin EC [Ecotrin Low Dose] 81 mg PO DAILY 12/24/17 12/24/17 Calcium Polycarbophil [Fibercon] 625 mg PO DAILY 12/24/17 12/24/17 HYDROcodone/APAP 7.5-325MG [Randolph 1 tab PO Q6H PRN 12/24/17 12/24/17 7.5-325] buPROPion XL [Wellbutrin XL] 300 mg PO DAILY 12/24/17 12/24/17 rOPINIRole HCL [Requip] 0.5 mg PO HS 12/24/17 12/24/17 Previous Rx's Medication Instructions Recorded Clindamycin HCl 300 mg PO Q8HR 7 Days #21 cap 12/25/17 Levofloxacin [Levaquin] 500 mg PO DAILY #7 tab 12/25/17 Levofloxacin [Levaquin] 500 mg PO BID #14 tab 01/02/18 Allergies Allergy/AdvReac Type Severity Reaction Status Date / Time aspirin Allergy Unknown Verified 02/12/19 21:13 cinnamon [Cinnamon] Allergy CHANCRE Verified 02/12/19 21:13 SORES codeine Allergy Unknown Verified 02/12/19 21:13 cyclobenzaprine HCl Allergy BALANCE Verified 02/12/19 21:13 [From Flexeril] ISSUES/RELAXTION erythromycin base Allergy Unknown Verified 02/12/19 21:13 [Erythromycin Base] etodolac [From Lodine] Allergy Unknown Verified 02/12/19 21:13 formaldehyde Allergy Rash/Hives Verified 02/12/19 21:13 latex Allergy Rash/Hives Verified 02/12/19 21:13 nickel [Nickel] Allergy Rash/Hives Verified 02/12/19 21:13 Penicillins Allergy Rash/Hives Verified 02/12/19 21:13 Tetracyclines Allergy Rash/Hives Verified 02/12/19 21:13 tramadol HCl [From Ultram] Allergy Unknown Verified 02/12/19 21:13 vancomycin Allergy Rash/Hives Verified 02/12/19 21:13 FRAGANCE Allergy HEADACHE Uncoded 02/12/19 21:13 QUANTERNIUM 15 Allergy Rash/Hives Uncoded 02/12/19 21:13 Review of Systems ROS Statement: Those systems with pertinent positive or pertinent negative responses have been documented in the HPI. ROS Other: All systems not noted in ROS Statement are negative. Past Medical History Past Medical History: Diabetes Mellitus, GERD/Reflux, Hyperlipidemia, Skin Disorder Additional Past Medical History / Comment(s): IBS. LICHENS SCLEROSIS (PERINEAL WOUND) & PITYRIASIS RUBRA PILARIS. mitral valve proplapse when [address] haily davis, no longer being treated for that History of Any Multi-Drug Resistant Organisms: None Reported Past Surgical History: Hysterectomy, Tonsillectomy Additional Past Surgical History / Comment(s): RETINAL DETACHMENT. LAPROSCOPY. right cataract, left wrist surgery 02/21/15, adhesions, egd- chocked on food, gets esophagus stretched about 4-5 years ago, 2002 sclarel buckle right eye Past Anesthesia/Blood Transfusion Reactions: Previous Problems w/ Anesthesia Additional Past Anesthesia/Blood Transfusion Reaction / Comment(s): DIFFICULTY WAKING UP Past Psychological History: Anxiety, Depression Smoking Status: Never smoker Past Alcohol Use History: None Reported Past Drug Use History: None Reported - Past Family History Mother Family Medical History: Coronary Artery Disease (CAD), Diabetes Mellitus, Hypertension Father Additional Family Medical History / Comment(s): psychiatric problems General Exam - General Exam Comments Initial Comments: General: The patient is awake and alert, in no distress, and does not appear acutely ill. Eye: +3 mm pupils are equal, round and reactive to light, extra-ocular movements are intact. No nystagmus. There is normal conjunctiva bilaterally. No signs of icterus. No photophobia Ears, nose, mouth and throat: There are moist mucous membranes and no oral lesions. Oropharynx was not erythematous there is no tonsillar enlargement exudates or lesions. Uvula midline. No tripoding, no drooling. Neck: The neck is supple, there is no tenderness or JVD. Cardiovascular: There is a regular rate and rhythm. No murmur, rub or gallop is appreciated. Respiratory: Lungs are clear to auscultation, respirations are non-labored, breath sounds are equal. No wheezes, stridor, rales, or rhonchi. No retractions or abdominal breathing. Gastrointestinal: Soft, non-distended, non-tender abdomen without masses or organomegaly noted. There is no rebound or guarding present. Bowel sounds are unremarkable. Musculoskeletal: Normal ROM, no tenderness. Strength 5/5. Sensation intact. Radial pulses equal bilaterally 2+. Neurological: A&O x 3. CN II-XII intact, There are no obvious motor or sensory deficits. Coordination appears grossly intact. Speech appears normal, no muffling. Skin: Skin is warm and dry and no rashes or lesions are noted. No extremity edema. Soft tissue swelling is noted at the right ankle joint mild, no rendess. (-) Homans. No pain to palpation of the posterior calves b/l. Psychiatric: Cooperative Limitations: no limitations Course Vital Signs 02/12/19 02/12/19 21:09 23:50 Temperature 98.9 F Pulse Rate 114 H 78 Respiratory 20 18 Rate Blood Pressure 172/97 140/80 O2 Sat by Pulse 96 97 Oximetry Medical Decision Making - Medical Decision Making Very well-appearing 63-year-old female. No overt signs of shortness of breath. Patient heart rate originally elevated. Repeat less than 100. EKG findings consistent with acute coronary syndrome patient denies chest pain. D-dimer elevated CTA negative for pulmonary embolism or aortic disease. Chest x-ray no pleural effusions or other acute pulmonary processes. BNP WNL. Patient continues to oxygenate on RA. Patient states the shoulder pain has been ongoing for the past year denies any change the characteristic. Laboratory studies are unremarkable. Findings were discussed the patient. I discussed the case with my attending Dr. Maldonado at this time given patient presented history, PE findings and laboratory studies I feel patient is stable for d/c with PCP f/u. Patient is agreeable with this plan. Discharged appearing well. - Lab Data Result diagrams: 02/12/19 21:38 02/12/19 21:38 Lab Results 08/17/19 08/17/19 08/17/19 Range/Units 21:38 21:38 21:38 WBC 6.7 (3.8-10.6) k/uL RBC 3.89 (3.80-5.40) m/uL Hgb 12.0 (11.4-16.0) gm/dL Hct 36.4 (34.0-46.0) % MCV 93.5 (80.0-100.0) fL MCH 30.8 (25.0-35.0) pg MCHC 32.9 (31.0-37.0) g/dL RDW 14.8 (11.5-15.5) % Plt Count 228 (150-450) k/uL Neutrophils % 44 % Lymphocytes % 37 % Monocytes % 7 % Eosinophils % 8 % Basophils % 1 % Neutrophils # 3.0 (1.3-7.7) k/uL Lymphocytes # 2.5 (1.0-4.8) k/uL Monocytes # 0.4 (0-1.0) k/uL Eosinophils # 0.6 (0-0.7) k/uL Basophils # 0.1 (0-0.2) k/uL PT 9.5 (9.0-12.0) sec INR 0.9 (<1.2) APTT 21.4 L (22.0-30.0) sec D-Dimer 0.83 H (<0.60) mg/L FEU Sodium 144 (137-145) mmol/L Potassium 4.1 (3.5-5.1) mmol/L Chloride 110 H (98-107) mmol/L Carbon Dioxide 25 (22-30) mmol/L Anion Gap 9 mmol/L BUN 12 (7-17) mg/dL Creatinine 0.94 (0.52-1.04) mg/dL Est GFR (CKD-EPI)AfAm 76 (>60 ml/min/1.73 sqM) Est GFR (CKD-EPI)NonAf 66 (>60 ml/min/1.73 sqM) Glucose 146 H (74-99) mg/dL Calcium 9.3 (8.4-10.2) mg/dL Magnesium 1.7 (1.6-2.3) mg/dL Total Bilirubin 0.3 (0.2-1.3) mg/dL AST 36 (14-36) U/L ALT 35 (9-52) U/L Alkaline Phosphatase 91 (38-126) U/L Troponin I (0.000-0.034) ng/mL NT-Pro-B Natriuret Pep pg/mL Total Protein 6.0 L (6.3-8.2) g/dL Albumin 3.7 (3.5-5.0) g/dL 02/12/19 02/12/19 Range/Units 21:38 21:38 WBC (3.8-10.6) k/uL RBC (3.80-5.40) m/uL Hgb (11.4-16.0) gm/dL Hct (34.0-46.0) % MCV (80.0-100.0) fL MCH (25.0-35.0) pg MCHC (31.0-37.0) g/dL RDW (11.5-15.5) % Plt Count (150-450) k/uL Neutrophils % % Lymphocytes % % Monocytes % % Eosinophils % % Basophils % % Neutrophils # (1.3-7.7) k/uL Lymphocytes # (1.0-4.8) k/uL Monocytes # (0-1.0) k/uL Eosinophils # (0-0.7) k/uL Basophils # (0-0.2) k/uL PT (9.0-12.0) sec INR (<1.2) APTT (22.0-30.0) sec D-Dimer (<0.60) mg/L FEU Sodium (137-145) mmol/L Potassium (3.5-5.1) mmol/L Chloride (98-107) mmol/L Carbon Dioxide (22-30) mmol/L Anion Gap mmol/L BUN (7-17) mg/dL Creatinine (0.52-1.04) mg/dL Est GFR (CKD-EPI)AfAm (>60 ml/min/1.73 sqM) Est GFR (CKD-EPI)NonAf (>60 ml/min/1.73 sqM) Glucose (74-99) mg/dL Calcium (8.4-10.2) mg/dL Magnesium (1.6-2.3) mg/dL Total Bilirubin (0.2-1.3) mg/dL AST (14-36) U/L ALT (9-52) U/L Alkaline Phosphatase (38-126) U/L Troponin I <0.012 (0.000-0.034) ng/mL NT-Pro-B Natriuret Pep 46 pg/mL Total Protein (6.3-8.2) g/dL Albumin (3.5-5.0) g/dL - EKG Data EKG Comments: Ventricular rate 100 bpm, GA interval 142 ms, QRS baptist 82 ms, QT/QTC 362/466 ms. This is normal sinus rhythm, normal EKG. There is no ST elevation or depression. EKG interpreted personally. Disposition Clinical Impression: Shortness of breath, Chronic right shoulder pain, Leg swelling Disposition: HOME SELF-CARE Condition: Good Instructions (If sedation given, give patient instructions): Dyspnea (ED) Additional Instructions: Please use medication as discussed. Please follow-up with family doctor in the next 2 days. Please return to emergency room if the symptoms increase or worsen or for any other concerns. Is patient prescribed a controlled substance at d/c from ED?: No Referrals: Michael Sauer MD [Primary Care Provider] - 1-2 days Time of Disposition: 00:23
[2019-02-12 22:22] LABS: D-Dimer 0.83 mg/L FEU (<0.60); INR 0.9 (<1.2); Partial Thromboplastin Time 21.4 sec (22.0-30.0); Prothrombin Time 9.5 sec (9.0-12.0)
--- NOTE | 2019-02-12 22:51 | XR ---
EXAM: XR Chest, 2 Views CLINICAL HISTORY: difficulty breathing TECHNIQUE: Frontal and lateral views of the chest. COMPARISON: No relevant prior studies available. FINDINGS: Lungs: Unremarkable. No consolidation. Pleural space: Unremarkable. No pneumothorax. Heart: Unremarkable. No cardiomegaly. Mediastinum: Unremarkable. Bones/joints: Unremarkable. IMPRESSION: Normal chest x-rays.
--- NOTE | 2019-02-12 23:38 | CT ---
EXAM: CT Angiography Chest With Intravenous Contrast CLINICAL HISTORY: elevated dimer, tachy, sob TECHNIQUE: Axial computed tomographic angiography images of the chest with 80 ml Isovue 370 intravenous contrast using pulmonary embolism protocol. CTDI is 18.5 mGy and DLP is 552 mGy-cm. This CT exam was performed using one or more of the following dose reduction techniques: automated exposure control, adjustment of the mA and/or kV according to patient size, and/or use of iterative reconstruction technique. MIP reconstructed images were created and reviewed. Coronal and sagittal reformatted images were created and reviewed. COMPARISON: No relevant prior studies available. FINDINGS: Pulmonary arteries: Unremarkable. No pulmonary embolism. Aorta: No acute findings. No thoracic aortic aneurysm. Lungs: Unremarkable. No mass. No consolidation. Pleural space: Unremarkable. No significant effusion. No pneumothorax. Heart: Unremarkable. No cardiomegaly. No significant pericardial effusion. No evidence of RV dysfunction. Bones/joints: No acute fracture. No dislocation. Soft tissues: Unremarkable. Lymph nodes: Unremarkable. No enlarged lymph nodes. IMPRESSION: No pulmonary embolism. Lungs are clear. Aorta is normal in contour course and caliber
[2019-02-12 23:51] VITALS: BP 140/80; PULSE 78; RESP 18
[2019-02-14 13:10] LABS: Hemoglobin A1C 7.6 % (4.0-6.0)
== END 2019-02-13 00:56 | disposition home or self-care (01) ==
LOC: EC 21:04
DX: M79.89 Other specified soft tissue disorders (principal); R06.02 Shortness of breath; M25.511 Pain in right shoulder; G89.29 Other chronic pain; R79.1 Abnormal coagulation profile; R00.0 Tachycardia, unspecified; E11.9 Type 2 diabetes mellitus without complications; K21.9 Gastro-esophageal reflux disease without esophagitis; E78.5 Hyperlipidemia, unspecified; F32.9 Major depressive disorder, single episode, unspecified; F41.9 Anxiety disorder, unspecified; Z88.0 Allergy status to penicillin; Z88.1 Allergy status to other antibiotic agents; Z88.5 Allergy status to narcotic agent; Z88.6 Allergy status to analgesic agent; Z88.8 Allergy status to other drugs, medicaments and biological substances; Z91.040 Latex allergy status; Z91.048 Other nonmedicinal substance allergy status; Z79.82 Long term (current) use of aspirin; Z79.84 Long term (current) use of oral hypoglycemic drugs; Z79.899 Other long term (current) drug therapy; Z82.49 Family history of ischemic heart disease and other diseases of the circulatory system
CPT/HCPCS: 36415; 93005; 85379; 83880; 80053; 83735; 84484; 85025; 85610; 85730; 83036; 71046; 71275; 99285; Q9967

== ENCOUNTER → 2021-03-19 | Outpatient (CLI) | payer MEDICARE ==
--- NOTE | 2021-03-20 10:32 | P.ARTDOP ---
Arterial Doppler LOWER EXTREMITY ARTERIAL DOPPLER: DATE OF SERVICE: 03/19/2021 Reason for study: Ulcers right foot. Doppler waveforms: Multiphasic bilaterally throughout. Pulse volume recording: []. Pressure gradients: None. Ankle-brachial indices: Greater than 1 bilaterally. Toe brachial indices: 0.63 on the right, 0.7 on the left Impression: Normal study.
== END | disposition home or self-care (01) ==
LOC: RADUSWWP 09:02
PROVIDERS: ATTEND Podiatrist
DX: L97.519 Non-pressure chronic ulcer of other part of right foot with unspecified severity (principal)
CPT/HCPCS: 93922

== ENCOUNTER → 2022-03-10 | Outpatient (CLI) | payer MEDICARE ==
[~2022-03-10] MED LIST: REGADENOSON 0.4 MG/5 ML SYRINGE IV PRN
--- NOTE | 2022-03-10 13:32 | NM ---
EXAMINATION TYPE: NM stress lexiscan cardiolite DATE OF EXAM: 03/10/2022 COMPARISON: NONE HISTORY: Chest pain TECHNIQUE: After the intravenous administration of 0915 mCi Tc 99m Sestamibi - Cardiolite resting SP ECT images acquired 45 minutes post injection. The patient received 0.4mg Lexiscan, 25.0 mCi Tc 99m Sestamibi - Stress images obtained [address] injection FINDINGS: Review of stress and rest SPECT images demonstrates questionable tiny apical septal defect. Gated an alysis shows normal wall motion with an estimated left ventricular ejection fraction of 64 %. IMPRESSION: 1. There is a questionable small reversible defect involving the apical septal myocardium which may b e artifactual. Correlate clinically to exclude reversible ischemia.
--- NOTE | 2022-03-10 15:42 | CA ---
Lexiscan Nuclear Stress Test Report Name: Ines Oates Exam Date: 03/10/2022 10:48 Exam Location: [facility] Ht (in): 67 Wt (lb): 171 BSA: 1.89 Ordering Phys: Michael Sauer MD Referring Phys: LACIE, Technologist: Tim Kirkland Age: 67 Gender: F : 1955 Procedure CPT: Indications: I20.9 ICD-10 Codes: Patient History: Medications: SEE LIST Meds past 24 hrs: Pretest Chest Pain: STRESS TEST Lexiscan Protocol Exercise Duration (min:sec): 02:[address] Depressions (mm): Angina Score: Garay Score: Resting HR (bpm): 56 Peak HR (bpm): 81 Resting BP (mmHg): 126 / 59 Peak BP (mmHg): 130 / 55 MPHR: 155 Target HR: 132 % MPHR: 52 METS: 1.0 Total Dose: Peak Dose: Atropine: Double Product: 76554 BP Response: Stress Termination: PROTOCOL COMPLETE Stress Symptoms: NAUSEA Stress Summary: ECG ANALYSIS Resting ECG: Stress ECG: CONCLUSIONS Baseline heart rate 56 beats a minute, Baseline blood pressure 126/59 mmHg Baseline twelve-lead EKG showed normal sensory normal cardiac intervals Normal heart rate and blood pressure response to Lexiscan infusion Mild nausea noted No ECG changes noted No arrhythmias noted Dr. Christiano De La Rosa MD (Electronically Signed) Final Date: 10 March 2022 15:41
== END | disposition home or self-care (01) ==
LOC: RADNMMAIN 08:47
PROVIDERS: ATTEND Family Medicine
DX: I20.9 Angina pectoris, unspecified (principal); R74.8 Abnormal levels of other serum enzymes
CPT/HCPCS: 93017; 78452; A9500; J2785

== ENCOUNTER → 2024-11-02 | Outpatient (CLI) | payer MEDICARE ==
--- NOTE | 2024-11-03 07:43 | BD ---
EXAMINATION TYPE: Axial Bone Density DATE OF EXAM: 11/02/2024 CLINICAL HISTORY: 69 years old Female. ICD-10 CODE: S62.325A DISP FX OF SHAFT OF FOURTH METACARPAL B ON , Additional History: Height: 65 Weight: 191 FRAX RISK QUESTIONS: History of Fracture in Adulthood: yes Secondary Osteoporosis: yes 3. Menopause before 45: yes, at 35 RISK FACTORS diabetic, HISTORY OF: hx of hand fracture, left wrist fx with surgical repair, and multiple toes, injections into back but no surgery MEDICATIONS: anxiety medication x3 times, norco, for pain vit d weekly 50,000 units, osteoarthritis, metformin EXAM MEASUREMENTS: Bone mineral densitometry was performed using the PCA Audit System. Bone mineral density as measured about the Lumbar spine is: ----- L1-L4(G/cm2): 1.551 T Score Values are as follows: ----- L1: 1.0 ----- L2: 3.7 ----- L3: 4.1 ----- L4: 3.3 ----- L1-L4: 3.1 Z Score Values are as follows: ----- L1: 1.9 ----- L2: 4.7 ----- L3: 5.0 ----- L4: 4.2 ----- L1-L4: 4.0 Bone mineral density is a baseline study for her. Bone mineral density about the R hip (g/cm2): 1.104 Bone mineral density about the L hip (g/cm2): 1.221 T Score values are as follows: -----R Neck: -0.1 -----L Neck: 0.5 -----R Total: 0.8 -----L Total: 1.7 Z Score values are as follows: -----R Neck: 1.0 -----L Neck: 1.6 -----R Total: 1.6 -----L Total: 2.5 Bone mineral density first dexxa scan, baseline. FRAX%s: The graph provided illustrates a 17.3% chance for a major osteoporotic fx and a 0.8% chance f or the hips probability for fx in 10 years time. IMPRESSION: Normal (Values between +1 and -1 indicate normal bone mass). Consider repeating this study in 5 year s or sooner if there is some new clinical indication. NOTE: T-SCORE=SD OF THE YOUNG ADULT MEAN. [facility], , 11/03/2024 7:41 AM
== END | disposition home or self-care (01) ==
LOC: RADBDWWP 13:13
PROVIDERS: ATTEND Family Medicine
DX: S62.325A Displaced fracture of shaft of fourth metacarpal bone, left hand, initial encounter for closed fracture (principal)
CPT/HCPCS: 77080